=== PATIENT | male | born 1965 | race Caucasian/White ===

== ENCOUNTER 2016-05-21 16:36 | Emergency (ER) | payer OTHER ==
[2016-05-21 16:45] VITALS: BP 123/85; PULSE 110; TEMP 98.6; BMI 29.8
--- NOTE | 2016-05-21 17:14 | PDOC ---
History of Present Illness - General History Source: Patient Exam Limitations: No Limitations - History of Present Illness Initial Comments: 05/21/16 17:37 The patient is a 50 year old male presenting with her partner, with a significant past medical history of asthma, who presents to the emergency department with left testicle pain and swelling for the past 3 days. He describes the pain as moderate and constant, rating it a 9/10 in severity. He denies any radiation or modifying factors. He reports that he has had multiple boils recently in his buttocks that have resolved after continuous washing. He also reports that he has been feeling lightheaded as well. The patient denies chest pain, shortness of breath and headache. Denies fever, chills, nausea, vomit, diarrhea and constipation. Denies dysuria, frequency, urgency and hematuria. Allergies: None Past surgical history: None reported Social history: Social alcohol use. No tobacco or drug use reported <Terrell Waggoner - Last Filed: 05/21/16 19:30> <Gurwinder White - Last Filed: 05/21/16 20:02> - General Chief Complaint: Pain Stated Complaint: HERNIA Time Seen by Provider: 05/21/16 17:14 Past History <Terrell Waggoner - Last Filed: 05/21/16 19:30> - Past Medical History Asthma: Yes - Psycho/Social/Smoking Cessation Hx Suicidal Ideation: No Smoking History: Never smoked Hx Alcohol Use: Yes (SOCIAL) Drug/Substance Use Hx: No Substance Use Type: None <Gurwinder White - Last Filed: 05/21/16 20:02> - Past Medical History Allergies/Adverse Reactions: Allergies Allergy/AdvReac Type Severity Reaction Status Date / Time No Known Allergies Allergy Verified 05/21/16 16:45 Home Medications: Ambulatory Orders Albuterol 0.083% Nebulizer Imani [Ventolin 0.083% Nebulizer Soln -] 1 neb NEB Q6H PRN 05/21/16 Albuterol Sulfate Inhaler - [Ventolin Hfa Inhaler -] 2 inh PO Q6H PRN 05/21/16 Oxycodone HCl/Acetaminophen [Percocet 5-325 mg Tablet] 1 tab PO Q6H #15 tablet MDD 3 05/21/16 Sulfamethoxazole/Trimethoprim [Bactrim Ds Tablet] 1 each PO BID #20 tablet 05/21 Review of Systems - Review of Systems Able to Perform ROS?: Yes Comments:: 05/21/16 17:38 CONSTITUTIONAL: No fever, no chills, no fatigue EYES: No visual changes ENT: No ear pain, no sore throat CARDIOVASCULAR: No chest pain, no palpitations RESPIRATORY: No cough, no SOB GI: No abdominal pain, no nausea, no vomiting, no constipation, no diarrhea GENITOURINARY: +Left sided testicle pain. No dysuria, no frequency, no hematuria MUSKULOSKELETAL: No backpain, no joint pain, no myalgias SKIN: No rash NEURO: No headache <Terrell Waggoner - Last Filed: 05/21/16 19:30> *Physical Exam - Vital Signs Last Vital Signs Temp Pulse Resp BP Pulse Ox 98.6 F 110 H 20 123/85 95 05/21/16 16:41 05/21/16 16:41 05/21/16 16:41 05/21/16 16:41 05/21/16 16:41 - Physical Exam Comments: 05/21/16 17:38 CONSTITUTIONAL: Well-appearing; well-nourished; in no apparent distress HEAD: Normocephalic; atraumatic EYES: PERRL; EOM intact ENMT: External appears normal; normal oropharynx NECK: Supple; non-tender; no cervical lymphadenopathy CARD: Normal S1, S2; no murmurs, rubs, or gallops RESP: Normal chest excursion with respiration; breath sounds clear and equal bilaterally; no wheezes, rhonchi, or rales ABD: Soft, non-distended; non-tender; no palpable organomegaly, no palpable hernias EXT: Normal ROM in all four extremities; non-tender to palpation; distal pulses intact SKIN: Warm, dry, no rash NEURO: No focal neurological deficiencies. <Terrell Waggoner - Last Filed: 05/21/16 19:30> - Vital Signs Last Vital Signs Temp Pulse Resp BP Pulse Ox 98.6 F 110 H 20 123/85 95 05/21/16 16:41 05/21/16 16:41 05/21/16 16:41 05/21/16 16:41 05/21/16 16:41 <Gurwinder White - Last Filed: 05/21/16 20:02> ED Treatment Course - RADIOLOGY Radiograph Interpretation: 05/21/16 19:30 Scrotal ultrasound Reviewed by: Dr. Ban Whitt Impression: 2.5 x 1.4 cm mass like density in the left scrotal wall. Differential diagnosis includes a <Terrell Waggoner - Last Filed: 05/21/16 19:30> Medical Decision Making - Medical Decision Making 05/21/16 19:31 Patient is a 50-year-old male who presents with atraumatic left scrotal mass with associated pain. In the ER, patient is awake and alert, nontoxic-appearing , afebrile, with a palpable 2 cm left scrotal sac mass. Scrotal ultrasound shows no evidence of collection, soft tissue swelling with peripheral flow is noted. I suspect a localized infection without a drainable collection at this time. We'll consult urology. Will discharge with Bactrim by mouth, sitz baths, pain meds and urological follow-up as an outpatient. <Gurwinder White - Last Filed: 05/21/16 20:02> *DC/Admit/Observation/Transfer - Attestations Scribe Attestion: 05/21/16 17:38 Documentation prepared by Terrell Waggoner, acting as medical education specialist for Gurwinder White MD <Terrell Waggoner - Last Filed: 05/21/16 19:30> - Attestations Physician Attestion: 05/21/16 19:31 The documentation was prepared by the scribe under my direct supervision. I have reviewed the documentation which correctly represents the findings, medical decision-making and critical action taken by me. <Gurwinder White - Last Filed: 05/21/16 20:02> Diagnosis at time of Disposition: Pain in scrotum - Discharge Dispostion Disposition: HOME Condition at time of disposition: Stable - Referrals Referrals: Andrae Christy MD [Primary Care Provider] - Bentley Vela MD [Staff Physician] - - Patient Instructions Printed Discharge Instructions: DI for Skin Abscess, DI for Scrotal Abscess Additional Instructions: Take antibiotics as directed; take sitz baths several times a day for 15-30 minutes at a time. Follow-up with urology. Return immediately for severe pain, high fever.
[2016-05-21] MEDS ORDERED: OXYCODONE/APAP 5/325MG COMBO TABLET PO ONE (17:38)
[2016-05-21] MEDS ORDERED: OXYCODONE/APAP 5/325MG COMBO TABLET ONE (17:47)
[2016-05-21 18:20] LABS: URINE APPEARANCE CLEAR; URINE BILIRUBIN NEGATIVE (NEGATIVE); URINE BLOOD NEGATIVE (NEGATIVE); URINE COLOR YELLOW; URINE GLUCOSE (UA) NEGATIVE (NEGATIVE); URINE KETONE NEGATIVE (NEGATIVE); URINE LEUK ESTERASE NEGATIVE (NEGATIVE); URINE NITRITE NEGATIVE (NEGATIVE); URINE PROTEIN NEGATIVE (NEGATIVE); URINE UROBILINOGEN NEGATIVE E.U./dl (0.2-1.0)
[2016-05-21] MEDS ORDERED: LIDOCAINE 1%/EPI 1:100000 (50 ML MULTI DOSE VIAL) ONE (18:38)
== END 2016-05-21 20:09 | disposition home or self-care (01) ==
LOC: JER 16:36
DX: N50.89 Other specified disorders of the male genital organs (principal)
CPT/HCPCS: 76870-TC; 81003; 87086; 99281-25

== ENCOUNTER 2016-11-26 17:02 | Emergency (ER) | payer OTHER ==
[2016-11-26 17:17] VITALS: BP 129/97; PULSE 104; TEMP 99; BMI 27.1
[2016-11-26] MEDS ORDERED: CEPHALEXIN MONOHYDRATE 500 MG CAPSULE (UD) PO ONE (18:21)
[2016-11-26] MEDS ORDERED: SULFAMETHOXAZOLE/TRIMETHOPRIM 800MG/160MG D.S. TABLET PO ONE (18:21)
--- NOTE | 2016-11-26 18:22 | PDOC ---
History of Present Illness - General Chief Complaint: Abscess Boil Stated Complaint: ABSCESS BOIL Time Seen by Provider: 11/26/16 18:08 History Source: Patient Exam Limitations: No Limitations - History of Present Illness Initial Comments: 11/26/16 18:16 Patient states suffers from chronic abscesses, states last month was admitted to [facility] for 6 days for an abscess to his buttock with need for IV antibiotics. States resolved in finish his course of antibiotics from that episode and had occurrence of small tender lesions under his left axilla and now has moved to one on the right side. None of them are draining, patient denies fever, but states are painful and knows that they are the same type of abscess he frequently gets. 11/26/16 18:32 Timing/Duration: reports: constant, getting worse Severity: Yes: moderate Location: reports: extremities Associated Symptoms: reports: denies symptoms. denies: fever Past History - Travel Traveled outside of the country in the last 30 days: No Close contact w/someone who was outside of country & ill: No - Past Medical History Allergies/Adverse Reactions: Allergies Allergy/AdvReac Type Severity Reaction Status Date / Time No Known Allergies Allergy Verified 11/26/16 17:16 Home Medications: Ambulatory Orders Albuterol Sulfate Inhaler - [Ventolin Hfa Inhaler -] 2 inh PO Q6H PRN 05/21/16 Cephalexin Monohydrate [Keflex -] 500 mg PO Q8H #21 capsule 11/26/16 Chlorhexidine Gluconate [Hibiclens For Decolonization -] 1 applic TP DAILY #1 bottle 11/26/16 Sulfamethoxazole/Trimethoprim [Bactrim *Ds*] 1 each PO BID #14 tablet 11/26/16 Asthma: Yes - Suicide/Smoking/Psychosocial Hx Smoking History: Never smoked Hx Alcohol Use: No Drug/Substance Use Hx: No Substance Use Type: None Review of Systems - Review of Systems Able to Perform ROS?: Yes Is the patient limited Nigerien proficient: Yes Constitutional: Yes: See HPI, Malaise. No: Symptoms Reported, Fever HEENTM: Yes: See HPI. No: Symptoms Reported Respiratory: No: Symptoms reported Integumentary: Yes: Symptoms Reported, See HPI, Erythema, Lesions (to bilateral axilla multiple to the left and 2 on the right) Neurological: No: Symptoms reported All Other Systems: Reviewed and Negative *Physical Exam - Vital Signs Last Vital Signs Temp Pulse Resp BP Pulse Ox 99.0 F 104 H 20 129/97 99 11/26/16 17:14 11/26/16 17:14 11/26/16 17:14 11/26/16 17:14 11/26/16 17:14 - Physical Exam General Appearance: Yes: Nourished, Appropriately Dressed, Apparent Distress, Mild Distress HEENT: positive: MILKA, Normal ENT Inspection, TMs Normal, Pharynx Normal Musculoskeletal: positive: Normal Inspection Extremity: positive: Normal Capillary Refill, Normal Inspection, Normal Range of Motion Integumentary: positive: Normal Color, Swelling (multiple non-pointing tender lesions under her left axilla, largest approximately 1 cm but not fluctuant or pointing. 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 We will encourage patient to continue hot soaks, start on Keflex and Bactrim and given information about decontamination of skin with Hibiclens and bleach baths. *DC/Admit/Observation/Transfer Diagnosis at time of Disposition: Hydradenitis - Discharge Dispostion Disposition: HOME Condition at time of disposition: Stable Admit: No - Referrals Referrals: Andrae Christy MD [Primary Care Provider] - - Patient Instructions Printed Discharge Instructions: DI for Incision and Drainage of a Skin Abscess Additional Instructions: Rest, keep area elevated. Avoid strenuous activity or exercise until wound is healed Use hot soaks to area to bring more blood to the surface and encourage drainage May change dressings as needed to keep clean - Allow water from shower to wash area thoroughly for 2-3 minutes, and pat dry upon exit of shower and replace dressing. Change his dressing daily until the wound is completely healed. May use Tylenol or Motrin for mild pain relief Use stronger medications as directed and prescribed Continue all medications as prescribed Followup with private physician in 2-3 days for wound check Return to emergency Department for worsening swelling, pain, redness, fevers as needed Mefoxin resistant Staphylococcus aureus is a normal skin bacteria and is mutated to be resistant to penicillin type drugs. The wounds may be draining and there for contagious to other family members. Vigorous handwashing and avoidance of skin contact of draining lesions it is important . All family members Will need to be protected and perform thorough cleaning of linens /towels/clothing. To decontaminate household: Soak in bath; in one half cup of bleach in 1 full tub of water 2 times a week x3 weeks With own scrub Nylon use chlorohexidine soap twice a week to decontaminate skin Clean tub /toilet with bleach wipes after each use Do not use same linens/avoid contact until lesions are healed Followup with private physician/statement clerk Take all of Bactrim as directed May use ibuprofen or Tylenol for pain relief Followup with PMD in one week if no resolution Make appointment with statement clerk for evaluation when possible - Post Discharge Activity Forms/Work/School Notes: Back to Work
[2016-11-26] MEDS ORDERED: SULFAMETHOXAZOLE/TRIMETHOPRIM 800MG/160MG D.S. TABLET ONE (18:29)
[2016-11-26] MEDS ORDERED: CEPHALEXIN MONOHYDRATE 500 MG CAPSULE (UD) ONE (18:29)
== END 2016-11-26 18:36 | disposition home or self-care (01) ==
LOC: JERFT 17:02
DX: L73.2 Hidradenitis suppurativa (principal)
CPT/HCPCS: 99281-25

== ENCOUNTER 2016-12-02 11:29 | Emergency (ER) | payer OTHER ==
[2016-12-02 11:35] VITALS: BP 128/79; PULSE 94; TEMP 98.3; BMI 27.1
--- NOTE | 2016-12-02 13:06 | PDOC ---
History of Present Illness - General Chief Complaint: Abscess Boil Stated Complaint: ABSCESS BOIL Time Seen by Provider: 12/02/16 12:38 History Source: Patient Exam Limitations: No Limitations - History of Present Illness Initial Comments: 12/02/16 13:01 c/o painful abscess under bilateral axilla. Pt on antibiotics states pain has improved and the abscess has improved however needs pain medication. 12/02/16 13:06 Past History - Past Medical History Allergies/Adverse Reactions: Allergies Allergy/AdvReac Type Severity Reaction Status Date / Time No Known Allergies Allergy Verified 12/02/16 11:35 Home Medications: Ambulatory Orders Albuterol Sulfate Inhaler - [Ventolin Hfa Inhaler -] 2 inh PO Q6H PRN 05/21/16 Cephalexin Monohydrate [Keflex -] 500 mg PO Q8H #21 capsule 11/26/16 Chlorhexidine Gluconate [Hibiclens For Decolonization -] 1 applic TP DAILY #1 bottle 11/26/16 Sulfamethoxazole/Trimethoprim [Bactrim *Ds*] 1 each PO BID #14 tablet 11/26/16 Ibuprofen 800 mg PO TID PRN #20 tablet 12/02/16 Oxycodone HCl/Acetaminophen [Percocet 5-325 mg Tablet] 1 tab PO Q6H #8 tablet MDD 4 tabs 12/02/16 Asthma: Yes - Suicide/Smoking/Psychosocial Hx Smoking History: Never smoked Hx Alcohol Use: No Drug/Substance Use Hx: No Substance Use Type: None *Physical Exam - Vital Signs Last Vital Signs Temp Pulse Resp BP Pulse Ox 98.3 F 94 H 18 128/79 97 12/02/16 11:33 12/02/16 11:33 12/02/16 11:33 12/02/16 11:33 12/02/16 11:33 - Physical Exam General Appearance: Yes: Nourished, Appropriately Dressed HEENT: positive: EOMI, MILKA Neck: positive: Supple Respiratory/Chest: positive: Lungs Clear, Normal Breath Sounds Cardiovascular: positive: Regular Rhythm, Regular Rate Musculoskeletal: positive: Normal Inspection Extremity: positive: Normal Capillary Refill, Normal Inspection, Normal Range of Motion Integumentary: positive: Normal Color, Dry, Warm, Other (bilateral axila with small non fluctunat 1cm abscesses, no redness no drainage tender to touch, no streaking ) Neurologic: positive: Fully Oriented, Alert, Normal Response, Motor Strength 5/5 Medical Decision Making - Medical Decision Making 12/02/16 22:52 cc: improve abscess however requesting pain meds no fever no surrounding cellulitus will give short supply of percocet for pain *DC/Admit/Observation/Transfer Diagnosis at time of Disposition: Hydradenitis - Discharge Dispostion Disposition: HOME Condition at time of disposition: Improved - Prescriptions Prescriptions: Ibuprofen 800 mg PO TID PRN #20 tablet PRN Reason: Pain Oxycodone HCl/Acetaminophen [Percocet 5-325 mg Tablet] 1 tab PO Q6H #8 tablet MDD 4 tabs - Referrals Referrals: Andrae Christy MD [Primary Care Provider] - - Patient Instructions Additional Instructions: take the percocet for severe pain , take ibuprofen 800mg every 6hrs for mild to moderate pain DO NOT DRIVE, OPERATE MACHINERY OR DRINK ALCOHOL WHILE TAKING PERCOCET follow up tomorrow as scheduled with your PMD
== END 2016-12-02 13:10 | disposition home or self-care (01) ==
LOC: JERFT 11:29
DX: L73.2 Hidradenitis suppurativa (principal)
CPT/HCPCS: 99281-25

== ENCOUNTER 2017-12-24 17:30 | Emergency (ER) | payer OTHER ==
--- NOTE | 2017-12-24 17:59 | PDOC ---
Rapid Medical Evaluation Chief Complaint: Injury Time Seen by Provider: 12/24/17 17:56 Medical Evaluation: Allergies Allergy/AdvReac Type Severity Reaction Status Date / Time No Known Allergies Allergy Verified 10/05/17 14:49 12/24/17 17:56 I have performed a brief in person evaluation of this patient. The patient presents with a CC of: right knee pain Pt is a 52 YO male who states that he fell yesterday on his left knee and was evaluated at another facility yesterday and had xrays. Pt was discharged on Toradol. Pt continues with pain. Pain is a 8/10. No meds taken today as he is having foot surgery tomorrow. PE: Skin: clear Lungs: Clear Heart: RRR Abd: No pain upon palpation MS: Right knee-full ROM, no edema. Psych: Age appropriate. I have ordered the following: right knee xray The patient will proceed to [facility] for further evaluation. Discharge Disposition - Diagnosis Knee pain, acute Qualifiers: Laterality: right Qualified Code(s): M25.561 - Pain in right knee - Referrals - Patient Instructions - Post Discharge Activity
[2017-12-24 18:00] VITALS: BP 135/83; PULSE 104; TEMP 99.3; BMI 28.7
--- NOTE | 2017-12-24 20:11 | PDOC ---
History of Present Illness - General Chief Complaint: Injury Stated Complaint: RT KNEE INJURY Time Seen by Provider: 12/24/17 17:56 Past History - Past Medical History Allergies/Adverse Reactions: Allergies Allergy/AdvReac Type Severity Reaction Status Date / Time No Known Allergies Allergy Verified 12/24/17 17:57 Home Medications: Ambulatory Orders Albuterol Sulfate Inhaler - [Ventolin HFA Inhaler -] 2 puff PO BID 12/24/17 Asthma: Yes COPD: No Diabetes: Yes (pre, workup in progress) - Surgical History Orthopedic Surgery: Yes (rt knee in 2010, rt. shoulder dislocation times 3) - Immunization History Immunization Up to Date: Yes - Suicide/Smoking/Psychosocial Hx Smoking History: Never smoked Have you smoked in the past 12 months: No Information on smoking cessation initiated: No Hx Alcohol Use: No Drug/Substance Use Hx: No Substance Use Type: Heroin Hx Substance Use Treatment: Yes (2016) *Physical Exam - Vital Signs Last Vital Signs Temp Pulse Resp BP Pulse Ox 99.3 F 104 H 16 135/83 100 12/24/17 17:57 12/24/17 17:57 12/24/17 17:57 12/24/17 17:57 12/24/17 17:57 *DC/Admit/Observation/Transfer Diagnosis at time of Disposition: Knee pain, acute Qualifiers: Laterality: right Qualified Code(s): M25.561 - Pain in right knee - Discharge Dispostion Disposition: HOME Condition at time of disposition: Stable Decision to Admit order: No - Referrals Referrals: Hans Hutton MD [Primary Care Provider] - - Patient Instructions Printed Discharge Instructions: DI for Knee Pain Additional Instructions: Your x-ray showed chronic changes. You may take Tylenol as needed for pain until after your surgery. Follow the dosing instructions on the bottle. You may have your bunion surgery as planned. You may consider getting a scooter post surgery to take pressure off the right knee. Please follow up with orthopedics. Referral has been provided for you. Return to emergency department for worsening pain, swelling,extremity, or any changes in her symptoms. - Post Discharge Activity
== END 2017-12-24 20:33 | disposition home or self-care (01) ==
LOC: JERFT 17:30
DX: M25.561 Pain in right knee (principal); W19.XXXA Unspecified fall, initial encounter; Y93.89 Activity, other specified; Y92.89 Other specified places as the place of occurrence of the external cause; Y99.8 Other external cause status; J45.909 Unspecified asthma, uncomplicated
CPT/HCPCS: 73564-TC-RT-FY; 99281-25

== ENCOUNTER 2017-12-25 08:56 | Day surgery (SDC) | payer OTHER ==
[2017-12-24 14:31] VITALS: BMI 28.7
[2017-12-25] MEDS ORDERED: BUPIVACAINE HCL/PF 0.5% (5MG/ML) 10 ML VIAL ONE (09:13)
[2017-12-25] MEDS ORDERED: EPINEPHrine/PF 1 MG/1 ML (1:1,000) AMPULE ONE (09:13)
[2017-12-25 10:14] VITALS: BP 122/81; PULSE 87; TEMP 98.7
[2017-12-25] MEDS ORDERED: LIDOCAINE 1%/EPI 1:100000 (20 ML MULTI DOSE VIAL) ONE (10:17)
== END 2017-12-25 10:37 | disposition home or self-care (01) ==
LOC: JASU-SURG 08:56
PROVIDERS: ATTEND Podiatrist Foot Surgery
PROC: 3E013GC Introduction of Other Therapeutic Substance into Subcutaneous Tissue, Percutaneous Approach (ICD-10-PCS; principal; 2017-12-25)
DX: Z53.8 Procedure and treatment not carried out for other reasons (principal)

== ENCOUNTER 2018-09-27 10:34 | Emergency (ER) | payer OTHER ==
[2018-09-27 10:39] VITALS: BP 125/82; PULSE 81; TEMP 98.1; BMI 28.5
[2018-09-27] MEDS ORDERED: SULFAMETHOXAZOLE/TRIMETHOPRIM 800MG/160MG D.S. TABLET PO ONE (11:41)
[2018-09-27] MEDS ORDERED: IBUPROFEN 400 MG TABLET (FP) PO ONE ×2 (11:41→11:52)
--- NOTE | 2018-09-27 11:42 | PDOC ---
History of Present Illness - General Chief Complaint: Abscess Boil Stated Complaint: RT UNDERARM BOIL Time Seen by Provider: 09/27/18 10:59 - History of Present Illness Initial Comments: 09/27/18 12:01 CHIEF COMPLAINT: abscess HISTORY OF PRESENT ILLNESS: 52 yo M with hx of multiple abscesses presents to fast track with left axillary abscess. Patient reports he has had this for "a few days and I tried to use warm compresses to bust it but it's gotten so painful now and it needs to be drained." No recent travel or sick contacts. PAST MEDICAL HISTORY: Denies past medical history FAMILY HISTORY: Denies SOCIAL HISTORY: Denies tobacco, alcohol, illicit drug use. SURGICAL HISTORY: Denies ALLERGIES: No known drug allergies REVIEW OF SYSTEMS General/Constitutional: Denies fever or chills. Denies weakness, weight change. HEENT: Denies change in vision. Denies ear pain or discharge. Denies sore throat. Cardiovascular: Denies chest pain or shortness of breath. Respiratory: Denies cough, wheezing, or hemoptysis. Gastrointestinal: Denies nausea, vomiting, diarrhea or constipation. Denies rectal bleeding. Genitourinary: Denies dysuria, frequency, or change in urination. Musculoskeletal: Denies joint or muscle swelling or pain. Denies neck or back pain. Skin: Abscess to left axilla. Neurologic: Denies headache, vertigo, loss of consciousness, or loss of sensation. PHYSICAL EXAM General Appearance: Well-appearing, appropriately dressed. No apparent distress , no intoxication. HEENT: EOMI, PERRLA, normal ENT inspection, normal voice, TMs normal, pharynx normal. No conjunctival pallor. No photophobia, scleral icterus. Neck: Supple. Trachea midline. No tenderness, rigidity, carotid bruit, stridor , lymphadenopathy, or thyromegaly. Respiratory/Chest: Lungs CTAB. No shortness of breath, chest tenderness, respiratory distress, accessory muscle use. No crackles, rales, rhonchi, stridor , wheezing, dullness Cardiovascular: RRR. S1, S2. No JVD, murmur, bradycardia, tachycardia. Vascular Pulses: Dorsalis-Pedis (R): 2+, Dorsalis-Pedis (L): 2+ Gastrointestinal/Abdominal: Normal bowel sounds. Abdomen soft, non-distended. No tenderness or rebound tenderness. No organomegaly, pulsatile mass, guarding , hernia, hepatomegaly, splenomegaly. Musculoskeletal/Extremities: Normal inspection. FROM of all extremities, normal capillary refill. Pelvis Stable. No CVA tenderness. No tenderness to extremities, pedal edema, swelling, erythema or deformity. Integumentary: Abscess to L axilla with purulent drainage, with surrounding erythema, tenderness, and induration. Otherwise appropriate color, dry, warm. 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 Fully oriented, alert. Appropriate mood/affect. Motor strength 5/5. No appreciable EOM palsy, facial droop or sensory deficit. 09/27/18 12:02 Past History - Past Medical History Allergies/Adverse Reactions: Allergies Allergy/AdvReac Type Severity Reaction Status Date / Time No Known Allergies Allergy Verified 09/27/18 10:38 Home Medications: Ambulatory Orders Albuterol Sulfate Inhaler - [Ventolin HFA Inhaler -] 2 puff PO BID 12/24/17 Ibuprofen [Motrin -] 800 mg PO BID 12/29/17 Sulfamethoxazole/Trimethoprim [Bactrim Ds -] 1 tab PO BID #14 tablet 09/27/18 Asthma: Yes COPD: No Diabetes: Yes (pre, workup in progress) - Surgical History Orthopedic Surgery: Yes (rt knee in 2010, rt. shoulder dislocation times 3) - Immunization History Immunization Up to Date: Yes - Suicide/Smoking/Psychosocial Hx Smoking History: Never smoked Have you smoked in the past 12 months: No Information on smoking cessation initiated: No Hx Alcohol Use: No Drug/Substance Use Hx: No Substance Use Type: Heroin Hx Substance Use Treatment: Yes (2016) *Physical Exam - Vital Signs Last Vital Signs Temp Pulse Resp BP Pulse Ox 98.1 F 81 18 125/82 100 09/27/18 10:36 09/27/18 10:36 09/27/18 10:36 09/27/18 10:36 09/27/18 10:36 Procedures - Consent Consent obtained: Verbal - Incision and Drainage I&D Site: Left: Axilla Betadine cleansed: Yes Anesthesia: 1% Lidocaine Volume(ml): 8 Blade Size: 11 Attempts: 2 Iodinated Packin/2 in Dressing: Yes (wet to dry gauze) Medical Decision Making - Medical Decision Making 09/27/18 12:05 52 yo M with hx of multiple abscesses presents to fast track with left axillary abscess. -I&D performed of left axilla, purulent drainage expressed with two small loculations removed. Pt tolerated well. -ibuprofen, bactrim *DC/Admit/Observation/Transfer Diagnosis at time of Disposition: Abscess - Discharge Dispostion Disposition: HOME Condition at time of disposition: Stable Decision to Admit order: No - Prescriptions Prescriptions: Sulfamethoxazole/Trimethoprim [Bactrim Ds -] 1 tab PO BID #14 tablet - Referrals - Patient Instructions Printed Discharge Instructions: DI for Incision and Drainage of a Skin Abscess - Post Discharge Activity
[2018-09-27] MEDS ORDERED: SULFAMETHOXAZOLE/TRIMETHOPRIM 800MG/160MG D.S. TABLET ONE (11:51)
--- NOTE | 2018-09-28 10:06 | PDOC ---
Patient Follow-up (Call Back) - Post ED Follow - Up Condition at time of discharge: Stable Disposition at time of original discharge: HOME Reason for Call Back: Abnwl. Microbiology (Pt with MRSA on culture, pt covered on bactrim. No further work up needed. Pt returning in 2 days for a wound check)
== END 2018-09-27 12:10 | disposition home or self-care (01) ==
LOC: JERFT 10:34
PROC: 0X953ZZ Drainage of Left Axilla, Percutaneous Approach (ICD-10-PCS; principal; 2018-09-27)
DX: L02.412 Cutaneous abscess of left axilla (principal)
CPT/HCPCS: 10060; 87070; 87186; 87205; 99282-25

== ENCOUNTER 2019-04-16 16:07 | Emergency (ER) | payer OTHER ==
[2019-04-16 16:12] VITALS: BP 131/77; PULSE 90; TEMP 99; BMI 27.1
--- NOTE | 2019-04-16 16:58 | PDOC ---
History of Present Illness - General History Source: Patient Exam Limitations: No Limitations <Radha Granger - Last Filed: 04/16/19 16:53> <Brock Ham - Last Filed: 04/17/19 10:14> - General Chief Complaint: Asthma Stated Complaint: DETOX/ASTHMA Time Seen by Provider: 04/16/19 16:25 Past History - Past Medical History Asthma: Yes COPD: No Diabetes: Yes (pre, workup in progress) - Surgical History Orthopedic Surgery: Yes (rt knee in 2011, rt. shoulder dislocation times 3) - Immunization History Immunization Up to Date: Yes - Psycho Social/Smoking Cessation Hx Smoking History: Never smoked Have you smoked in the past 12 months: No Information on smoking cessation initiated: No Hx Alcohol Use: No Drug/Substance Use Hx: Yes (HEROIN) Substance Use Type: Heroin Hx Substance Use Treatment: Yes (2016) <Radha Granger - Last Filed: 04/16/19 16:53> <Brock Ham - Last Filed: 04/17/19 10:14> - Past Medical History Allergies/Adverse Reactions: Allergies Allergy/AdvReac Type Severity Reaction Status Date / Time No Known Allergies Allergy Verified 04/16/19 20:22 Home Medications: Ambulatory Orders Albuterol Sulfate Inhaler - [Ventolin HFA Inhaler -] 2 puff PO BID 12/24/17 *Physical Exam - Vital Signs Last Vital Signs Temp Pulse Resp BP Pulse Ox 99.0 F 90 16 131/77 100 04/16/19 16:09 04/16/19 16:09 04/16/19 16:09 04/16/19 16:09 04/16/19 16:09 - Physical Exam General Appearance: No: Apparent Distress HEENT: positive: Other (pupils pinpoint B/L) Respiratory/Chest: positive: Lungs Clear, Normal Breath Sounds. negative: Respiratory Distress Cardiovascular: positive: Regular Rhythm, Regular Rate, S1, S2. negative: Murmur Gastrointestinal/Abdominal: positive: Normal Bowel Sounds, Soft. negative: Tender, Distended, Guarding, Rebound Extremity: positive: Swelling (of BLE), Other (tracking guevara along B/L forearms , no tremors of extremities noted). negative: Calf Tenderness, Erythema Integumentary: positive: Other (no sweating) Neurologic: positive: Fully Oriented, Alert <Radha Granger - Last Filed: 04/16/19 16:53> - Vital Signs Last Vital Signs Temp Pulse Resp BP Pulse Ox 99.0 F 90 16 131/77 100 04/16/19 16:09 04/16/19 16:09 04/16/19 16:09 04/16/19 16:09 04/16/19 16:09 <Brock Ham - Last Filed: 04/17/19 10:14> Medical Decision Making - Medical Decision Making 53-year-old male history of lupus, asthma, substance abuse presents the ED requesting detox. Patient has had detox in the past but states he started using drugs again 3 months ago. Patient states he uses heroin (both significant IV) and cocaine. Patient states he started using IV heroin 1 month ago. Mentions he was on methadone in the past but he took it for pain control. States his PCP prescribed it as 5 mg BID. Mentions he had 2 episodes of emesis yesterday but none today. Also mentions he had 3 episodes of watery diarrhea. +chills. Denies fever, shortness of breath, chest pain, abdominal pain, other complaints. Patient here for detox COWS score is 5 Patient otherwise appears well Spoke to Dr. Richey at [facility] who accepted patient for detox D/W Dr. Ham 04/16/19 16:54 <Radha Granger - Last Filed: 04/16/19 16:53> - Medical Decision Making The patient was seen and evaluated in conjunction with RA Granger under my direct supervision, ancillary studies were reviewed. I agree with the plan as outlined by RA Granger . <Brock Ham - Last Filed: 04/17/19 10:14> Discharge - Discharge Information Problems reviewed: Yes - Admission No - Additional Discharge Information Prescription Drug Monitoring Program (I-STOP) results: I-STOP not reviewed <Radha Granger - Last Filed: 04/16/19 16:53> <Brock Ham - Last Filed: 04/17/19 10:14> - Discharge Information Clinical Impression/Diagnosis: Desire for detoxification Condition: Stable Disposition: HOME - Follow up/Referral Referrals: Hans Hutton MD [Primary Care Provider] - - Patient Discharge Instructions Additional Instructions: Thank you for choosing [facility]. It was a pleasure taking care of you. You were accepted for detox at [address] [place] [address] Return to the Emergency Department if your symptoms worsen or persist or have other concerning symptoms.
== END 2019-04-16 17:50 | disposition home or self-care (01) ==
LOC: JER 16:07
DX: F11.10 Opioid abuse, uncomplicated (principal); F14.10 Cocaine abuse, uncomplicated; J45.909 Unspecified asthma, uncomplicated; R73.03 Prediabetes
CPT/HCPCS: 99282-25

== ENCOUNTER 2019-04-16 18:09 | Inpatient (IN) | payer OTHER ==
--- NOTE | 2019-04-16 19:13 | BHS.RME ---
Substance Use & Tx History - Last Treatment Where was last treatment: ER (sent from [facility] ED) COWS - Scale Resting Pulse: 1= NM 81-100 Sweatin=Flushed/Facial Moisture Restless Observation: 0= Sits Still Pupil Size: 0= Normal to Room Light Bone or Joint Aches: 2= Severe Diffuse Aches Runny Nose/ Eye Tearin= Nasal Congestion GI Upset > 30mins: 2= Nausea/Diarrhea Tremor Observation: 0= None Yawning Observation: 0= None Anxiety or Irritability: 2=Irritable/Anxious Goose Flesh Skin: 0=Smooth Skin COWS Score: 10
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
[2019-04-16] MEDS ORDERED: MAG HYDROX/AL HYDROX/SIMETH 30 ML UNIT-DOSE CUP PO PRN (19:54)
[2019-04-16] MEDS ORDERED: BISMUTH SUBSALICYLATE 524 MG/30 ML UD PO PRN (19:54)
[2019-04-16] MEDS ORDERED: MAGNESIUM HYDROX 2400MG/30ML ORAL SUSPENSION 30 ML CUP PO PRN (19:54)
[2019-04-16] MEDS ORDERED: IBUPROFEN 400 MG TABLET (FP) PO PRN (19:54)
[2019-04-16] MEDS ORDERED: hydrOXYzine PAMOATE 25 MG CAPSULE (FP) PO PRN (19:54)
[2019-04-16] MEDS ORDERED: MENTHOL/PHENOL 1 EACH UD MM PRN (19:54)
[2019-04-16] MEDS ORDERED: ACETAMINOPHEN 325 MG TABLET (FP) PO PRN ×2 (19:54)
[2019-04-16] MEDS ORDERED: MAGNESIUM CITRATE 300 ML BOTTLE PO PRN (19:54)
[2019-04-16 20:35] VITALS: BMI 26.0
[2019-04-16] MEDS ORDERED: cloNIDine HCL 0.1 MG TABLET PO PRN (20:35)
[2019-04-16] MEDS: MELATONIN 5 MG TABLETS PO PRN (21:32)
[2019-04-16] MEDS: THIAMINE HCL 100 MG TABLET (FP) PO SCH (21:32)
[2019-04-16] MEDS: ALBUTEROL SO4 HFA INHALER IH SCH (21:40)
[2019-04-16] MEDS ORDERED: METHADONE HCL 10 MG TABLET (FOR DETOX USE ONLY) PO ONE (22:00)
[2019-04-17 09:44] LABS: HEMATOCRIT 35.5 % (35.4-49); HEMOGLOBIN 11.8 GM/dL (11.7-16.9); MCH 27.1 pg (25.7-33.7); MCHC 33.3 g/dl (32.0-35.9); MEAN CELL VOLUME 81.3 fl (80-96); PLATELET COUNT 236 K/MM3 (134-434); RBC 4.36 M/mm3 (4.00-5.60); RDW 13.6 % (11.9-15.9); WHITE BLOOD COUNT 5.9 K/mm3 (4.0-10.0)
[2019-04-17] MEDS ORDERED: METHADONE HCL 5 MG TABLET (FOR DETOX USE ONLY) PO ONE (10:00)
[2019-04-17] MEDS: PRENATAL VITAMINS W/ FOLIC ACID TABLET (FP) PO SCH (10:14)
[2019-04-17 10:15] LABS: BILIRUBIN,TOTAL 0.9 mg/dL (0.2-1); BLOOD UREA NITROGEN 8.1 mg/dL (7-18); CALCIUM 8.8 mg/dL (8.5-10.1); CREATININE 0.8 mg/dL (0.55-1.3); TOT PROT 6.4 g/dl (6.4-8.2)
[2019-04-17] MEDS: ALBUTEROL SO4 HFA INHALER IH SCH ×2 (10:16→22:29)
[2019-04-17] MEDS ORDERED: cloNIDine HCL 0.1 MG TABLET PO PRN (11:11)
--- NOTE | 2019-04-17 11:11 | PN ---
BHS COWS - Scale Resting Pulse: 1= [place] 81-100 Sweatin= Chills/Flushing Restless Observation: 0= Sits Still Pupil Size: 1= Pupils >than Normal Bone or Joint Aches: 0= None Runny Nose/ Eye Tearin= None GI Upset > 30mins: 0= None Tremor Observation of Outstretched Hands: 2= Slight Tremor Visible Yawning Observation: 0= None Anxiety or Irritability: 1=Feels Anxious/Irritable Goose Flesh Skin: 3=Piloerection COWS Score: 9 BHS Progress Note (SOAP) Subjective: 53 years old male admitted on 04/16/19 for opiate withdrawal sx management treating with methadone detox regiment "I am fine" but feeling tired resting in bed limited conversation with the staff Objective: 04/17/19 11:15 Vital Signs Temperature 98.4 F 04/17/19 09:44 Pulse Rate 91 H 04/17/19 09:44 Respiratory Rate 18 04/17/19 09:44 Blood Pressure 140/77 04/17/19 09:44 O2 Sat by Pulse Oximetry (%) Laboratory Last Values WBC 5.9 K/mm3 (4.0-10.0) 04/17/19 07:10 RBC 4.36 M/mm3 (4.00-5.60) 04/17/19 07:10 Hgb 11.8 GM/dL (11.7-16.9) 04/17/19 07:10 Hct 35.5 % (35.4-49) 04/17/19 07:10 MCV 81.3 fl (80-96) 04/17/19 07:10 MCH 27.1 pg (25.7-33.7) 04/17/19 07:10 MCHC 33.3 g/dl (32.0-35.9) 04/17/19 07:10 RDW 13.6 % (11.9-15.9) 04/17/19 07:10 Plt Count 236 K/MM3 (134-434) 04/17/19 07:10 MPV 9.0 fl (7.5-11.1) 04/17/19 07:10 Sodium 141 mmol/L (136-145) 04/17/19 07:10 Potassium 4.0 mmol/L (3.5-5.1) 04/17/19 07:10 Chloride 105 mmol/L (98-107) 04/17/19 07:10 Carbon Dioxide 34 mmol/L (21-32) H 04/17/19 07:10 Anion Gap 2 MMOL/L (8-16) L 04/17/19 07:10 BUN 8.1 mg/dL (7-18) 04/17/19 07:10 Creatinine 0.8 mg/dL (0.55-1.3) 04/17/19 07:10 Est GFR (CKD-EPI)AfAm 119.04 04/17/19 07:10 Est GFR (CKD-EPI)NonAf 102.71 04/17/19 07:10 Random Glucose 88 mg/dL (74-106) 04/17/19 07:10 Calcium 8.8 mg/dL (8.5-10.1) 04/17/19 07:10 Total Bilirubin 0.9 mg/dL (0.2-1) 04/17/19 07:10 AST 20 U/L (15-37) 04/17/19 07:10 ALT 21 U/L (13-61) 04/17/19 07:10 Alkaline Phosphatase 63 U/L (45-117) 04/17/19 07:10 Total Protein 6.4 g/dl (6.4-8.2) 04/17/19 07:10 Albumin 3.0 g/dl (3.4-5.0) L 04/17/19 07:10 lab noted Assessment: 04/17/19 11:42 opiate withdrawal Plan: methadone regiment
[2019-04-17] MEDS: THIAMINE HCL 100 MG TABLET (FP) PO SCH (22:12)
[2019-04-17] MEDS: MELATONIN 5 MG TABLETS PO PRN (22:13)
[2019-04-17] MEDS: METHOCARBAMOL 500 MG TABLET PO PRN (22:14)
[2019-04-18 09:19] VITALS: BP 127/86; PULSE 85; TEMP 98.9
[2019-04-18] MEDS ORDERED: METHADONE HCL 5 MG TABLET (FOR DETOX USE ONLY) PO ONE (10:00)
--- NOTE | 2019-04-18 10:09 | EKG ---
Test Reason : Blood Pressure : / mmHG Vent. Rate : 086 BPM Atrial Rate : 086 BPM P-R Int : 142 ms QRS Dur : 084 ms QT Int : 352 ms P-R-T Axes : 071 002 027 degrees QTc Int : 421 ms NORMAL SINUS RHYTHM NORMAL ECG NO PREVIOUS ECGS AVAILABLE Confirmed by David Calvo ([id number]) on 04/18/2019 10:08:46 AM Referred By: Basil Santiago Confirmed By:David Calvo
[2019-04-18] MEDS: PRENATAL VITAMINS W/ FOLIC ACID TABLET (FP) PO SCH (10:21)
[2019-04-18] MEDS: METHOCARBAMOL 500 MG TABLET PO PRN (10:21)
[2019-04-18] MEDS: ALBUTEROL SO4 HFA INHALER IH SCH (10:22)
--- NOTE | 2019-04-18 10:39 | PN ---
BHS COWS - Scale Resting Pulse: 1= [place] 81-100 Sweatin= Chills/Flushing Restless Observation: 0= Sits Still Pupil Size: 1= Pupils >than Normal Bone or Joint Aches: 1= Mild Discomfort Runny Nose/ Eye Tearin= None GI Upset > 30mins: 0= None Tremor Observation of Outstretched Hands: 1= Tremor [place], Not Seen Yawning Observation: 0= None Anxiety or Irritability: 1=Feels Anxious/Irritable Goose Flesh Skin: 0=Smooth Skin COWS Score: 6 BHS Progress Note (SOAP) Subjective: 53 years old male admitted on 04/16/19 for opiate withdrawal sx management treating with
--- NOTE | 2019-04-18 11:02 | DS ---
[facility] Detox Discharge Summary Admission Date: 04/16/19 Discharge Date: 04/18/19 - History Present History: Opioid Dependence Additional Comments: 53 years old [facility] admitted on 04/16/19 for opiate withdrawal sx management treated with methadone detox regiment Mr South insists to leave the detox unit that "keep reducing the methadone" refuses to participate in behavior and psychosocial therapies groups and meetings while in detox rejects aftercare referral discusses medication assisted treatment program titrates methadone up to appropriate level encourage pepper picker narcan from pharmacy health teaching on asthma related opiate of respiratory suppression alert oriented x 3 speech clearly coherently ambulating steady gait overhead page Ms Duvall as per against medical advice protocol Pertinent Past History: time for discharge 58 minutes - Physical Exam Results Vital Signs: Vital Signs Temperature 98.9 F 04/18/19 08:30 Pulse Rate 85 04/18/19 08:30 Respiratory Rate 8 L 04/18/19 08:30 Blood Pressure 127/86 04/18/19 08:30 O2 Sat by Pulse Oximetry (%) Pertinent Admission Physical Exam Findings: opiate withdrawal Laboratory Last Values WBC 5.9 K/mm3 (4.0-10.0) 04/17/19 07:10 RBC 4.36 M/mm3 (4.00-5.60) 04/17/19 07:10 Hgb 11.8 GM/dL (11.7-16.9) 04/17/19 07:10 Hct 35.5 % (35.4-49) 04/17/19 07:10 MCV 81.3 fl (80-96) 04/17/19 07:10 MCH 27.1 pg (25.7-33.7) 04/17/19 07:10 MCHC 33.3 g/dl (32.0-35.9) 04/17/19 07:10 RDW 13.6 % (11.9-15.9) 04/17/19 07:10 Plt Count 236 K/MM3 (134-434) 04/17/19 07:10 MPV 9.0 fl (7.5-11.1) 04/17/19 07:10 Sodium 141 mmol/L (136-145) 04/17/19 07:10 Potassium 4.0 mmol/L (3.5-5.1) 04/17/19 07:10 Chloride 105 mmol/L (98-107) 04/17/19 07:10 Carbon Dioxide 34 mmol/L (21-32) H 04/17/19 07:10 Anion Gap 2 MMOL/L (8-16) L 04/17/19 07:10 BUN 8.1 mg/dL (7-18) 04/17/19 07:10 Creatinine 0.8 mg/dL (0.55-1.3) 04/17/19 07:10 Est GFR (CKD-EPI)AfAm 119.04 04/17/19 07:10 Est GFR (CKD-EPI)NonAf 102.71 04/17/19 07:10 Random Glucose 88 mg/dL (74-106) 04/17/19 07:10 Calcium 8.8 mg/dL (8.5-10.1) 04/17/19 07:10 Total Bilirubin 0.9 mg/dL (0.2-1) 04/17/19 07:10 AST 20 U/L (15-37) 04/17/19 07:10 ALT 21 U/L (13-61) 04/17/19 07:10 Alkaline Phosphatase 63 U/L (45-117) 04/17/19 07:10 Total Protein 6.4 g/dl (6.4-8.2) 04/17/19 07:10 Albumin 3.0 g/dl (3.4-5.0) L 04/17/19 07:10 RPR Titer Nonreactive (NONREACTIVE) 04/17/19 07:10 lab noted - Treatment Hospital Course: Detox Protocol Followed, Discharged Condition Good Patient has Accepted a Rehab Referral to: medication assisted treatment - Medication Discharge Medications: Ambulatory Orders Albuterol Sulfate Inhaler - [Ventolin HFA Inhaler -] 2 puff PO BID 12/24/17 Naloxone HCl [Narcan] 4 mg NS ASDIR PRN #1 spray 04/18/19 - Diagnosis (1) Opioid dependence, uncomplicated Status: Acute (2) Asthma Status: Chronic Qualifiers: Asthma severity: mild Asthma persistence: intermittent Asthma complication type: with status asthmaticus Qualified Code(s): J45.22 - Mild intermittent asthma with status asthmaticus - AMA Did Patient Leave Against Medical Advice: Yes
[2019-04-19] MEDS ORDERED: METHADONE HCL 5 MG TABLET (FOR DETOX USE ONLY) PO ONE (06:00)
[2019-04-19] MEDS ORDERED: METHADONE HCL 10 MG TABLET (FOR DETOX USE ONLY) PO ONE (10:00)
[2019-04-20] MEDS ORDERED: METHADONE HCL 5 MG TABLET (FOR DETOX USE ONLY) PO ONE (06:00)
== END 2019-04-18 11:11 | disposition left against medical advice (07) | DRG 770 ==
LOC: YASAS 18:09 → Y3N 20:31
PROVIDERS: ADMIT Allergy & Immunology; ATTEND Allergy & Immunology
PROC: HZ2ZZZZ Detoxification Services for Substance Abuse Treatment (ICD-10-PCS; principal; 2019-04-16)
DX: F11.23 Opioid dependence with withdrawal (principal); F14.20 Cocaine dependence, uncomplicated; J45.22 Mild intermittent asthma with status asthmaticus; B18.2 Chronic viral hepatitis C; R73.03 Prediabetes
CPT/HCPCS: 36415; 80053; 85027; 86593; 93005; 93010; J0735